=== PATIENT | female | born 1975 | race African-American/Black ===

== ENCOUNTER 2016-05-26 10:50 | Emergency (ER) | payer OTHER ==
--- NOTE | 2016-05-26 12:39 | EDDOCDS ---
Physician Documentation [facility] Name: La Alarcon Age: 40 yrs Sex: Female : 1975 Arrival Date: 05/26/2016 Time: 10:50 Bed D2 Private MD: Disposition: 05/26/16 12:16 Discharged to Home/Self Care. Impression: Toxic effect of carbon monoxide - Exposure to Carbon Monoxide. - Condition is Stable. - Discharge Instructions: Carbon Monoxide Poisoning, [id number]. - Referral List Call for Appointment, Medication Reconciliation, Local Pharmacy Hours form. - [facility] ; When: 1 - 2 days; Reason: Recheck today's complaints, Continuance of care. Follow up: Emergency Department; Reason: Worsening of conditions. - Problem is new. - Symptoms have improved. Historical: - Allergies: no known allergies; - Home Meds: 1. none - PMHx: none; - PSHx: none; - Social history: Smoking status: Patient states was never smoker of tobacco. No barriers to communication noted, The patient speaks fluent Albanian, Speaks appropriately for age. - Family history: Not pertinent. - : The pt / caregiver states he / she is not on anticoagulants. Home medication list is obtained from the patient. - Exposure Risk Screening:: None identified. Vital Signs: 05/26 10:52 BP 101 / 64; Pulse 76; Resp 16; Temp 98.7; Pulse Ox 100% ; Weight 68.04 kg / 150 lbs; cmb Height 5 ft. 5 in. (165.10 cm); Pain 0/10; 12:36 BP 102 / 67; Pulse 84; Resp 16; Temp 98.6(O); Pulse Ox 98% on R/A; Pain 0/10; kr3 10:52 Body Mass Index 24.96 (68.04 kg, 165.10 cm) cmb MDM: 10:51 Oxygen at 2L/min via NC ordered. ef1 10:52 Carboxyhemoglobin Ordered. EDMS 11:37 Carboxyhemoglobin Reviewed. ef1 12:21 Financial registration complete. mm15 Signatures: Dispatcher [employer] EDMS Sima Mackey,WILNER RN kr3 Jeannine Mckinney, PA-C PA-C ef1 Black Kirk mm15 MTDD
--- NOTE | 2016-05-26 12:39 | EDDOCDS ---
Nurse's Notes [facility] Name: La Alarcon Age: 40 yrs Sex: Female : 1975 Arrival Date: 05/26/2016 Time: 10:50 Bed D2 Private MD: Diagnosis: Toxic effect of carbon monoxide-Exposure to Carbon Monoxide Presentation: 05/26 11:00 Presenting complaint: Patient states: was in home with high levels of carbon monoxide. kr3 Denies any symptoms. Adult Sepsis Screening: The patient does not have new or worsening altered mentation. Patient's respiratory rate is less than 22. Systolic blood pressure is greater than 100. Patient has a qSOFA score of 0- Negative Sepsis Screen. Suicide/Homicide risk assessment- the patient denies having any suicidal and/or homicidal ideations and does not present with any other emotional, behavioral or mental health complaints. 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 Transition of care: patient was not received from another setting of care. 11:00 Acuity: ADAN Level 4 kr3 11:00 Method Of Arrival: Walkin/Carried/Asstd kr3 Triage Assessment: 11:01 General: Appears in no apparent distress, comfortable, Behavior is cooperative. Pain: kr3 Denies pain. Pt Declines HIV testing. Neurological: Level of Consciousness is awake, alert. Respiratory: Respiratory effort is even, unlabored. Derm: Skin is pink, warm & dry. Historical: - Allergies: no known allergies; - Home Meds: 1. none - PMHx: none; - PSHx: none; - Social history: Smoking status: Patient states was never smoker of tobacco. No barriers to communication noted, The patient speaks fluent Latvian, Speaks appropriately for age. - Family history: Not pertinent. - : The pt / caregiver states he / she is not on anticoagulants. Home medication list is obtained from the patient. - Exposure Risk Screening:: None identified. Screenin:35 Screening information is obtained from the patient. Fall risk: No risks identified. kr3 Assistance ADL's: requires no assistance with activities of daily living. Abuse/DV Screen: The patient / caregiver reports he/she is: not in a situation that causes fear, pain or injury. Nutritional screening: No deficits noted. Advance Directives: Currently, there is no health care proxy. home support is adequate. Assessment: 12:37 Reassessment: Patient appears in no apparent distress at this time. Pain: Denies pain. kr3 Neurological: Level of Consciousness is awake, alert. Respiratory: Respiratory effort is even, unlabored. Derm: Skin is normal. Vital Signs: 10:52 BP 101 / 64; Pulse 76; Resp 16; Temp 98.7; Pulse Ox 100% ; Weight 68.04 kg; Height 5 cmb ft. 5 in. (165.10 cm); Pain 0/10; 12:36 BP 102 / 67; Pulse 84; Resp 16; Temp 98.6(O); Pulse Ox 98% on R/A; Pain 0/10; kr3 10:52 Body Mass Index 24.96 (68.04 kg, 165.10 cm) cmb Vitals: 10:52 Log In Time: May 26, 2016 at 10:50. cmb ED Course: 10:51 Patient visited by Thao Elder. cmb 10:51 [facility] ef1 10:51 Nehal Vang MD is Attending Physician. ef1 10:51 Patient moved to Waiting cmb 10:53 Patient moved to Pre RCE cmb 11:01 Triage Initiated kr3 11:04 Patient moved to D2 ead 11:09 Patient visited by Jeannine Mckinney PA-C. ef1 11:10 No IV's were initiated during this patient's visit. No procedures done that require kr3 assistance. O2 via nasal cannula \T\ 2L/min. 11:37 Patient visited by Jeannine Mckinney PA-C. ef1 11:56 Patient visited by Jeannine Mckinney PA-C. ef1 12:16 [facility] is Referral Physician. ef1 12:37 The patient / caregiver is instructed regarding the plan of care and ED course. Patient kr3 has correct armband on for positive identification. Order Results: Lab Order: Carboxyhemoglobin; SPEC'M 05/26/16 11:23 Test: CARBOXYHEMOGLOBIN; Value: 5.2; Range: 0.0-1.5; Abnormal: Above high normal; Units: %; Status: F Test Note: ; CARBOXYHEMOGLOBIN EXPECTED VALUES SUBURBAN NON-SMOKERS LESS THAN 1.5% SMOKERS 1.5-5.0% HEAVY SMOKERS 5.0-9.0% Outcome: 12:16 Discharge ordered by Provider. ef1 12:36 Discharge Assessment: patient administered narcotics - no. The following High Risk kr3 Discharge criteria are identified: None. Discharged to home ambulatory. Condition: stable. Discharge instructions given to patient, Instructed on discharge instructions, follow up and referral plans. Demonstrated understanding of instructions, Pt was receptive of discharge instructions/ teaching. No special radiology studies were completed. Property sent home with patient. 12:37 Patient left the ED. kr3 Signatures: Sima Mackey,RN RN kr3 Jeannine Mckinney, PA-C PA-C ef1 Thao Elder Emily,RN RN edisd MTDD
--- NOTE | 2016-05-28 13:39 | EDDOCDS ---
Nurse's Notes [facility] Name: La Alarcon Age: 40 yrs Sex: Female : 1975 Arrival Date: 05/26/2016 Time: 10:50 Bed D2 Private MD: Diagnosis: Toxic effect of carbon monoxide-Exposure to Carbon Monoxide Presentation: 05/26 11:00 Presenting complaint: Patient states: was in home with high levels of carbon monoxide. kr3 Denies any symptoms. Adult Sepsis Screening: The patient does not have new or worsening altered mentation. Patient's respiratory rate is less than 22. Systolic blood pressure is greater than 100. Patient has a qSOFA score of 0- Negative Sepsis Screen. Suicide/Homicide risk assessment- the patient denies having any suicidal and/or homicidal ideations and does not present with any other emotional, behavioral or mental health complaints. 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 Transition of care: patient was not received from another setting of care. 11:00 Acuity: ADAN Level 4 kr3 11:00 Method Of Arrival: Walkin/Carried/Asstd kr3 Triage Assessment: 11:01 General: Appears in no apparent distress, comfortable, Behavior is cooperative. Pain: kr3 Denies pain. Pt Declines HIV testing. Neurological: Level of Consciousness is awake, alert. Respiratory: Respiratory effort is even, unlabored. Derm: Skin is pink, warm & dry. Historical: - Allergies: no known allergies; - Home Meds: 1. none - PMHx: none; - PSHx: none; - Social history: Smoking status: Patient states was never smoker of tobacco. No barriers to communication noted, The patient speaks fluent Japanese, Speaks appropriately for age. - Family history: Not pertinent. - : The pt / caregiver states he / she is not on anticoagulants. Home medication list is obtained from the patient. - Exposure Risk Screening:: None identified. Screenin:35 Screening information is obtained from the patient. Fall risk: No risks identified. kr3 Assistance ADL's: requires no assistance with activities of daily living. Abuse/DV Screen: The patient / caregiver reports he/she is: not in a situation that causes fear, pain or injury. Nutritional screening: No deficits noted. Advance Directives: Currently, there is no health care proxy. home support is adequate. Assessment: 12:37 Reassessment: Patient appears in no apparent distress at this time. Pain: Denies pain. kr3 Neurological: Level of Consciousness is awake, alert. Respiratory: Respiratory effort is even, unlabored. Derm: Skin is normal. Vital Signs: 10:52 BP 101 / 64; Pulse 76; Resp 16; Temp 98.7; Pulse Ox 100% ; Weight 68.04 kg; Height 5 cmb ft. 5 in. (165.10 cm); Pain 0/10; 12:36 BP 102 / 67; Pulse 84; Resp 16; Temp 98.6(O); Pulse Ox 98% on R/A; Pain 0/10; kr3 10:52 Body Mass Index 24.96 (68.04 kg, 165.10 cm) cmb Vitals: 10:52 Log In Time: May 26, 2016 at 10:50. cmb ED Course: 10:51 Patient visited by Thao Elder. cmb 10:51 Jeannine Mckinney PA-C is PHCP. ef1 10:51 Nehal Vang MD is Attending Physician. ef1 10:51 Patient moved to Waiting cmb 10:53 Patient moved to Pre RCE cmb 11:01 Triage Initiated kr3 11:04 Patient moved to D2 ead 11:09 Patient visited by Jeannine Mckinney PA-C. ef1 11:10 No IV's were initiated during this patient's visit. No procedures done that require kr3 assistance. O2 via nasal cannula \T\ 2L/min. 11:37 Patient visited by Jeannine Mckinney PA-C. ef1 11:56 Patient visited by Jeannine Mckinney PA-C. ef1 12:16 [facility] is Referral Physician. ef1 12:37 The patient / caregiver is instructed regarding the plan of care and ED course. Patient jeremiah has correct armband on for positive identification. 14:23 T-Sheet-- Draft Copy was scanned into [employer] and attached to record. gb 14:24 [facility] Payment Agreement was scanned into [employer] and attached to record. mm15 14:46 Patient name changed from La\S\\S\Emeagwali\S\ to La\S\ \S\Emeagwali. EDMS Order Results: Lab Order: Carboxyhemoglobin; SPEC'M 05/26/16 11:23 Test: CARBOXYHEMOGLOBIN; Value: 5.2; Range: 0.0-1.5; Abnormal: Above high normal; Units: %; Status: F Test Note: ; CARBOXYHEMOGLOBIN EXPECTED VALUES SUB[place]AN NON-SMOKERS LESS THAN 1.5% SMOKERS 1.5-5.0% HEAVY SMOKERS 5.0-9.0% Outcome: 12:16 Discharge ordered by Provider. ef1 12:36 Discharge Assessment: patient administered narcotics - no. The following High Risk kr3 Discharge criteria are identified: None. Discharged to home ambulatory. Condition: stable. Discharge instructions given to patient, Instructed on discharge instructions, follow up and referral plans. Demonstrated understanding of instructions, Pt was receptive of discharge instructions/ teaching. No special radiology studies were completed. Property sent home with patient. 12:37 Patient left the ED. kr3 Signatures: Dispatcher [employer] EDRI Carmela Grimes, Phani Reg Sima Crowder,RN RN kr3 Jeannine Mckinney, PA-C PA-C ef1 Thao Elder Marlynn mm15 Jolly Kirk RN RN kristofer Chart Complete MTDD
--- NOTE | 2016-05-28 13:39 | EDDOCDS ---
Physician Documentation [facility] Name: La Alarcon Age: 40 yrs Sex: Female : 1975 Arrival Date: 05/26/2016 Time: 10:50 Bed D2 Private MD: Disposition: 05/26/16 12:16 Discharged to Home/Self Care. Impression: Toxic effect of carbon monoxide - Exposure to Carbon Monoxide. - Condition is Stable. - Discharge Instructions: Carbon Monoxide Poisoning, [id number]. - Referral List Call for Appointment, Medication Reconciliation, Local Pharmacy Hours form. - [facility] ; When: 1 - 2 days; Reason: Recheck today's complaints, Continuance of care. Follow up: Emergency Department; Reason: Worsening of conditions. - Problem is new. - Symptoms have improved. Historical: - Allergies: no known allergies; - Home Meds: 1. none - PMHx: none; - PSHx: none; - Social history: Smoking status: Patient states was never smoker of tobacco. No barriers to communication noted, The patient speaks fluent Argentine, Speaks appropriately for age. - Family history: Not pertinent. - : The pt / caregiver states he / she is not on anticoagulants. Home medication list is obtained from the patient. - Exposure Risk Screening:: None identified. Vital Signs: 05/26 10:52 BP 101 / 64; Pulse 76; Resp 16; Temp 98.7; Pulse Ox 100% ; Weight 68.04 kg / 150 lbs; cmb Height 5 ft. 5 in. (165.10 cm); Pain 0/10; 12:36 BP 102 / 67; Pulse 84; Resp 16; Temp 98.6(O); Pulse Ox 98% on R/A; Pain 0/10; kr3 10:52 Body Mass Index 24.96 (68.04 kg, 165.10 cm) cmb MDM: 10:51 Oxygen at 2L/min via NC ordered. ef1 10:52 Carboxyhemoglobin Ordered. EDMS 11:37 Carboxyhemoglobin Reviewed. ef1 12:21 Financial registration complete. mm15 14:23 T-Sheet-- Draft Copy was scanned into [employer] and attached to record. gb 14:24 [facility] Payment Agreement was scanned into [employer] and attached to record. mm15 Signatures: Dispatcher [employer] EDCarmela Saunders, Reg Reg gb Sima Mackey,RN RN kr3 Jeannine Mckinney, KOMAL PAMark ef1 Black Kirk mm15 The chart was reviewed and I authenticate all verbal orders and agree with the evaluation and treatment provided.Attachments: 14:23 T-Sheet-- Draft Copy gb 14:24 [facility] [place] mm15 Chart Complete MTDD
--- NOTE | 2016-05-28 13:39 | EDDOCDS ---
Physician Documentation [facility] Name: La Alarcon Age: 40 yrs Sex: Female : 1975 Arrival Date: 05/26/2016 Time: 10:50 Bed D2 Private MD: Disposition: 05/26/16 12:16 Discharged to Home/Self Care. Impression: Toxic effect of carbon monoxide - Exposure to Carbon Monoxide. - Condition is Stable. - Discharge Instructions: Carbon Monoxide Poisoning, [id number]-du-Khxi. - Referral List Call for Appointment, Medication Reconciliation, Local Pharmacy Hours form. - Follow up: [facility] ; When: 1 - 2 days; Reason: Recheck today's complaints, Continuance of care. Follow up: Emergency Department; Reason: Worsening of conditions. - Problem is new. - Symptoms have improved. Historical: - Allergies: no known allergies; - Home Meds: 1. none - PMHx: none; - PSHx: none; - Social history: Smoking status: Patient states was never smoker of tobacco. No barriers to communication noted, The patient speaks fluent Nicaraguan, Speaks appropriately for age. - Family history: Not pertinent. - : The pt / caregiver states he / she is not on anticoagulants. Home medication list is obtained from the patient. - Exposure Risk Screening:: None identified. Vital Signs: 05/26 10:52 BP 101 / 64; Pulse 76; Resp 16; Temp 98.7; Pulse Ox 100% ; Weight 68.04 kg / 150 lbs; cmb Height 5 ft. 5 in. (165.10 cm); Pain 0/10; 12:36 BP 102 / 67; Pulse 84; Resp 16; Temp 98.6(O); Pulse Ox 98% on R/A; Pain 0/10; kr3 10:52 Body Mass Index 24.96 (68.04 kg, 165.10 cm) cmb MDM: 10:51 Oxygen at 2L/min via NC ordered. ef1 10:52 Carboxyhemoglobin Ordered. EDMS 11:37 Carboxyhemoglobin Reviewed. ef1 12:21 Financial registration complete. mm15 14:23 T-Sheet-- Draft Copy was scanned into [employer] and attached to record. gb 14:24 [facility] Payment Agreement was scanned into [employer] and attached to record. mm15 Signatures: Dispatcher [employer] EDCarmela Saunders, Reg Reg gb Sima Mackey,RN RN kr3 Jeannine Mckinney, KOMAL PAMark ef1 Black Kirk mm15 The chart was reviewed and I authenticate all verbal orders and agree with the evaluation and treatment provided.Attachments: 14:23 T-Sheet-- Draft Copy gb 14:24 [facility] [place] Agreement mm15 Chart Complete MTDD
== END 2016-05-26 12:37 | disposition home or self-care (01) ==
LOC: M ED 10:50
DX: Z77.29 Contact with and (suspected) exposure to other hazardous substances (principal)